=== PATIENT | female | born 1955 | race Two or more races ===

== ENCOUNTER 2020-02-10 13:10 | Outpatient (CLI) | payer MEDICAID ==
[~2020-02-10] VITALS: Ht 152.4 cm; Wt 55.3 kg
[2020-02-10 13:20] VITALS: BP 103/62
--- NOTE | 2020-02-10 16:44 | Consultation ---
DATE OF CONSULTATION: 02/10/2020 CONSULTING PHYSICIAN: Davie Luong M.D. CHIEF COMPLAINT: Weight loss. HISTORY OF PRESENT ILLNESS: This is a very pleasant 64-year-old female. According to her, initially she had tried to lose weight last summer, but then it is currently getting out of control even though now she has stopped doing exercise, even though she does not want to lose anymore, but she continues to lose and she worries about that. Last colonoscopy was five years ago, but it was not clear, the patient could not tolerate the prep. PAST MEDICAL HISTORY: History of arrhythmias. PAST SURGICAL HISTORY: She had history of pacemaker placement. MEDICATIONS: Please see medication reconciliation list. FAMILY HISTORY: No family history of GI malignancies. SOCIAL HISTORY: The patient drinks alcohol on social occasions. Denies any tobacco or IV drug abuse. ALLERGIES: Barium. REVIEW OF SYSTEMS: Positive for weight loss and nausea. PHYSICAL EXAMINATION: VITAL SIGNS: Temperature 98.2, blood pressure 103/62, pulse 70, respirations 20. HEENT: Normocephalic and atraumatic. Sclerae anicteric. NECK: Supple. No evidence of obvious lymphadenopathy. CARDIOVASCULAR: Regular rate and rhythm. Plus S1 and S2. LUNGS: Clear to auscultation bilaterally. ABDOMEN: Positive bowel sounds. Soft and nontender. No rebound. No guarding. No peritoneal sign. EXTREMITIES: No cyanosis. No clubbing. No edema. ASSESSMENT AND PLAN: This is a 64-year-old female with weight loss, unintentional weight loss. Plan to do endoscopy and colonoscopy. The patient will need laboratory on the procedure day including CBC, CMP, CEA. If the endoscopy and colonoscopy is nondiagnostic, the patient most probably will benefit from paz-CT for evaluation. Davie Luong M.D. DR: CELINE JOB#: [id number] CC:
[2020-02-11] MEDS ORDERED: ACETAMINOPHEN500 M3 ORAL (10:22)
== END 2020-02-10 15:55 | disposition home or self-care (01) ==
LOC: PAN 13:10
DX: R63.4 Abnormal weight loss (principal); R11.0 Nausea
CPT/HCPCS: G0463

== ENCOUNTER 2020-03-21 12:27 | Outpatient (CLI) | payer MEDICAID ==
[~2020-03-21 12:27] MED LIST: ACETAMINOPHEN500 M3 ORAL
--- NOTE | 2020-03-21 12:45 | General Progress Note ---
Assessment/Plan Assessment/Plan: s/p EGD and colonoscopy treat for HP and RTC in 3 months repeat colonoscopy in 5 years patient was recommended to ask PMD to order paz CT given sig weight loss Subjective ROS Limited/Unobtainable: Yes Allergies: Coded Allergies: SULFAMETHOXAZOLE (Verified Allergy, Intermediate, 02/11/20) flu like symptom, nausea TRIMETHOPRIM (Verified Allergy, Intermediate, 02/11/20) flu like symptom, nausea Objective General Appearance: alert EENT: normal ENT inspection Neck: supple Cardiovascular: normal rate Respiratory/Chest: decreased breath sounds Abdomen: normal bowel sounds, non tender, soft Extremities: non-tender Davie Luong MD March 21, 2020 12:45
== END 2020-03-21 15:49 | disposition home or self-care (01) ==
LOC: PAN 12:27
DX: R63.4 Abnormal weight loss (principal); B96.81 Helicobacter pylori [H. pylori] as the cause of diseases classified elsewhere; Z88.2 Allergy status to sulfonamides
CPT/HCPCS: 99212